=== PATIENT | female | born 1970 | race Caucasian/White ===

== ENCOUNTER → 2018-07-20 | Outpatient (CLI) | payer OTHER ==
--- NOTE | 2018-07-20 16:53 | REPMRS ---
Patient History The patient states she has not had a clinical breast exam in over a year. Family history of breast cancer at age 52 in maternal aunt, colorectal cancer at age 66 in father. Digital Mammo Screening Bilat: July 20, 2018 - Exam #: [id number] Bilateral CC and MLO view(s) were taken. Technologist: Katia Pimentel, Technologist Prior study comparison: July 20, 2017, bilateral digital woman screen mammo, performed at [facility]. FINDINGS: The breast tissue is heterogeneously dense. This may lower the sensitivity of mammography. There is a moderate amount of heterogeneously dense fibroglandular tissue which is fairly symmetric. There is no interval development of dominant mass, architectural distortion, or clustered microcalcification typical of malignancy. There has been no change in the appearance of the mammogram from the prior studies. Assessment: BI-RADS/ACR category 1 mammogram. Negative. Recommendation Routine screening mammogram of both breasts in 1 year (for women over age 40). This patient's Lifetime Breast Cancer RIsk is estimated at 16.5 %. This mammogram was interpreted with the aid of an FDA-approved computer-aided dectection system. Electronically Signed By: Hal Foss MD 07/20/18 [id number]
== END ==
LOC: M RAD 14:58
PROVIDERS: ATTEND Student in an Organized Health Care Education/Training Program
DX: Z12.31 Encounter for screening mammogram for malignant neoplasm of breast (principal)

== ENCOUNTER 2018-12-05 12:30 | Emergency (ER) | payer OTHER ==
[~2018-12-05] VITALS: Ht 152.4 cm; Wt 55.5 kg
[2018-12-05] MEDS ORDERED: SIMV20TA2 PO (12:37)
[2018-12-05] MEDS ORDERED: MORPHINE 2 MG/ML 1ML SYRINGE (J2270) IV ONE (12:45)
[2018-12-05] MEDS ORDERED: ONDANSETRON 4MG/2ML VIAL (J2405) IV ONE (12:45)
[2018-12-05] MEDS ORDERED: NS 1,000 ML IV SCH (12:45)
[2018-12-05] MEDS ORDERED: GASTROGRAFIN SOLUTION 30ML (Q9963) As Ordered ONE (13:03)
[2018-12-05 13:09] LABS: BASO # 0.1 10^3/uL (0.0-0.2); BASO % 0.8 % (0.0-1.0); EOS # 0.2 10^3/uL (0.0-0.50); EOS % 2.5 % (0.0-3.0); HEMATOCRIT 41.3 % (36.0-47.0); HEMOGLOBIN 14.7 g/dl (12.0-15.5); LYMPH # 2.1 10^3/uL (1.5-4.5); LYMPH % 32.5 % (24.0-44.0); MEAN CORPUSCULAR HEMOGLOBIN 32.7 pg (27.0-33.0); MEAN CORPUSCULAR HGB CONC 35.6 g/dl (32.0-36.5); MEAN CORPUSCULAR VOLUME 91.8 fl (80.0-96.0); MONO # 0.6 10^3/uL (0.0-0.8); MONO % 9.7 % (0.0-5.0); NEUTROPHILS # 3.4 10^3/uL (1.8-7.7); PLATELET COUNT, AUTOMATED 296 10^3/uL (150-450); WHITE BLOOD COUNT 6.3 10^3/uL (4.0-10.0)
[2018-12-05] MEDS: GASTROGRAFIN SOLUTION 30ML PO SCH ×2 (13:11→13:40)
[2018-12-05 13:19] LABS: INR 0.92; PROTHROMBIN TIME 12.4 SECONDS (12.1-14.4)
[2018-12-05 13:42] LABS: ALBUMIN 4.1 GM/DL (3.2-5.2); ALT/SGPT 30 U/L (12-78); BILIRUBIN,DIRECT 0.1 MG/DL (0.0-0.2); BILIRUBIN,TOTAL 0.3 MG/DL (0.2-1.0); BLOOD UREA NITROGEN 13 MG/DL (7-18); CALCIUM LEVEL 8.7 MG/DL (8.5-10.1); CARBON DIOXIDE LEVEL 29 MEQ/L (21-32); CHLORIDE LEVEL 104 MEQ/L (98-107); CREATININE FOR GFR 0.77 MG/DL (0.55-1.30); GLOMERULAR FILTRATION RATE > 60.0 (>58); GLUCOSE, FASTING 95 MG/DL (70-100); LIPASE 105 U/L (73-393); POTASSIUM SERUM 3.6 MEQ/L (3.5-5.1); SODIUM LEVEL 138 MEQ/L (136-145); TOTAL PROTEIN 7.5 GM/DL (6.4-8.2)
[2018-12-05] MEDS ORDERED: ISOVUE-370 76% 100ML VIAL (Q9967) As Ordered ONE (14:39)
--- NOTE | 2018-12-05 15:28 | REP ---
CT ABDOMEN AND PELVIS WITH OR AND IV CONTRAST: TECHNIQUE: Axial contrast enhanced images from the lung bases to the pubic symphysis using 100 mL Isovue 370 intravenous contrast material with multiplanar reformations. Visualized lung bases demonstrate no infiltrate. The liver and gallbladder appear unremarkable . There is no evidence of biliary dilatation. The spleen, adrenals, pancreas and kidneys are unremarkable. There is no hydronephrosis. There is no abdominal aortic aneurysm. I see no adenopathy. I see no free air or free fluid. There is no bowel wall thickening. There is no evidence of appendicitis. The uterus is deviated to the right of midline. The urinary bladder appears grossly unremarkable. Two cystic structures in the right ovary appear to represent abdominal follicles measuring 2.2 and 2.1 cm. There is a left ovarian cyst 3.2 cm in diameter. No other abnormalities are seen. IMPRESSION: No evidence of appendicitis or other abdominal pathology. No free air or free fluid. Two cystic structures right ovary appear to represent dominant follicles measuring up to 2.2 cm. There is a left ovarian cyst 3.2 cm. Electronically Signed by Alan Adams MD 12/06/2018 03:14 P
[2018-12-05 15:30] VITALS: BP 111/67
== END 2018-12-05 15:32 | disposition home or self-care (01) ==
LOC: M ED 12:30
DX: N83.01 Follicular cyst of right ovary (principal); N83.02 Follicular cyst of left ovary; R11.0 Nausea; E78.5 Hyperlipidemia, unspecified; Z79.899 Other long term (current) drug therapy
CPT/HCPCS: 74177; 80048; 80076; 81001; 83690; 85025; 85610; 86850; 86870; 86900; 86901; 96360; 96361; 99284; Q9967

== ENCOUNTER → 2019-08-21 | Outpatient (REF) | payer OTHER ==
[~2019-08-21] MED LIST: SIMV20TA22 PO
== END ==
LOC: M SFHCLERA 09:59
PROVIDERS: ATTEND Nurse Practitioner Family
DX: R50.9 Fever, unspecified (principal)